=== PATIENT | male | born 1970 | race Caucasian/White ===

== ENCOUNTER → 2017-07-04 | Outpatient (CLI) | payer OTHER ==
[~2017-07-04] MED LIST: DIATRIZOATE MEGL/DIATRIZOA SOD 30 ML BTL PO ONE
--- NOTE | 2017-07-04 12:58 | Diagnostic Imaging Report ---
CT scan pelvis. 07/04/2017 Clinical history: Left-sided groin pain Technique: Routine volumetric CT pelvis. No intravenous contrast was administered. No enteric contrast was administered. Coronal, sagittal and axial images generated from source data. Dose: 390.53 mGy-cm Comparison: None Findings: Imaged portions of the bowel, urinary tract and vasculature are normal. No free fluid. Soft tissues: Large left inguinal hernia containing proximal sigmoid colon. Small fat-containing inguinal hernia. Skeleton: Intact. Impression: 1. Large left inguinal hernia contains normal-appearing sigmoid colon. No CT evidence of strangulation or obstruction. 2. Small fat-containing right inguinal hernia. This report was generated with voice-recognition technology. Errors in mule operator can occur. Please interpret accordingly and contact a radiologist if there are any questions regarding the report. Signed by: Dr. Roldan Lucas M.D. on 07/04/2017 12:54 PM
== END ==
LOC: CT 11:41
PROVIDERS: ATTEND Specialist
DX: R19.09 Other intra-abdominal and pelvic swelling, mass and lump (principal)
CPT/HCPCS: 72192

== ENCOUNTER 2017-07-31 07:33 | Observation (INO) | payer OTHER ==
[~2017-07-31] VITALS: Ht 182.9 cm; Wt 113.9 kg
[~2017-07-31 07:33] MED LIST changes: +ASPIR 8181 MG PO; +B COMPLEX1 EACH PO; -DIATRIZOATE MEGL/DIATRIZOA SOD 30 ML BTL PO ONE; +MULTI-VITAMIN1 EACH PO; +PRAVASTATIN SOD40 MG PO
[2017-07-31 08:55] LABS: BASOPHILS # (AUTO) 0.1 (0.0-0.1); EOSINOPHILS # (AUTO) 0.1 (0.0-0.4); EOSINOPHILS % 1.7 % (0.0-6.0); HEMOGLOBIN 16.2 g/dL (14.0-18.0); LYMPHOCYTES # (AUTO) 2.3 (1.0-3.2); LYMPHOCYTES % 29.1 % (18.0-39.1); MEAN CORPUSCULAR HEMOGLOBIN 30.1 pg (28-32); MEAN CORPUSCULAR VOLUME 83.5 fL (81-99); MONOCYTES # (AUTO) 0.6 (0.2-0.8); MONOCYTES % 7.1 % (4.4-11.3); NEUTROPHILS # (AUTO) 4.9 (2.1-6.9); NEUTROPHILS % 60.7 % (38.7-80.0); PLATELET COUNT 237 x10e3/uL (140-360); RED BLOOD COUNT 5.39 x10e6/uL (4.3-5.7); RED CELL DISTRIBUTION WIDTH 12.4 % (11.7-14.4)
[2017-07-31] MEDS ORDERED: BUPIVACAINE 0.5%/EPI 30 ML SDV INJ ONE (09:02)
[2017-07-31 09:10] LABS: ANION GAP 14.2 mmol/L (8-16); BLOOD UREA NITROGEN 16 mg/dL (7-26); BUN/CREATININE RATIO 16 (6-25); CALCIUM 9.9 mg/dL (8.4-10.2); CARBON DIOXIDE 26 mmol/L (22-29); CHLORIDE 104 mmol/L (98-107); CREATININE, SERUM 1.02 mg/dL (0.72-1.25); EST GLOMERULAR FILTRATION RATE > 60 ML/MIN (60-); GLUCOSE 99 mg/dL (74-118); POTASSIUM 4.2 mmol/L (3.5-5.1); SODIUM 140 mmol/L (136-145)
[2017-07-31] MEDS ORDERED: LIDOCAINE HCL 1% 30ML-PF VIAL ONE (09:28)
[2017-07-31] MEDS ORDERED: FENTANYL CITRATE/PF 100MCG/2 ML INJ ONE ×2 (12:55→17:54)
--- NOTE | 2017-07-31 13:00 | Operative Report ---
DATE OF PROCEDURE: July 31, 2017 PREOPERATIVE DIAGNOSIS: Left inguinal hernia. POSTOPERATIVE DIAGNOSIS: Left inguinal hernia. OPERATION PERFORMED: Repair of left inguinal hernia with extended Prolene hernia system. ANESTHESIA: General. COMPLICATIONS: None. ESTIMATED BLOOD LOSS: Minimal. DESCRIPTION OF PROCEDURE: With the patient lying in bed in supine position under good general endotracheal anesthesia, the abdomen was prepped with Betadine solution and draped in the usual manner. A left inguinal incision was made and was carried down through the subcutaneous tissue down to the external oblique aponeurosis. The external oblique was opened along the length of its fibers, and the external inguinal ring was opened. The cord was then mobilized and retracted. The cord was rather enlarged, and there was a large hernia sac that extended all the way up to the scrotum. The cord was then explored, and a lipoma of the cord was identified, which was from the cord structures, ligated with 2-0 Vicryl and divided. The large hernia sac was then from the cord structures and reduced all the way back to the intra-abdominal cavity. The preperitoneal space was then entered right through the internal ring, and a pocket was created without any difficulty. An extended Prolene hernia system was then placed in the preperitoneal space, and the underlay patch was deployed without any problems. The overlay patch was then placed over the floor and split inferolaterally to allow for passage of the cord. The mesh was then sutured to the conjoined tendon and the inguinal ligament using interrupted sutures of 2-0 Vicryl. The whole area was thoroughly irrigated. Perfect hemostasis was ascertained. All layers were infiltrated on the way out with solution of 1/4 percent Marcaine and 1% lidocaine mixed in equal parts. The external oblique aponeurosis was then closed with a running suture of 2-0 Vicryl. The subcutaneous tissue was approximated with 3-0 plain, and the skin was closed with clips. A dressing was applied. The sponge, lap and needle count was correct. The patient tolerated the procedure well and returned to the recovery room in stable condition. Job#: [id number] OPAL
[2017-07-31] MEDS ORDERED: HYDROCODONE/APAP 7.5MG-325MG 1 EA TAB ONE (15:53)
[2017-07-31] MEDS ORDERED: LIDOCAINE HCL 2% LOCAL INJ 5 ML SDV VIAL INJ ONE (16:15)
[2017-07-31] MEDS ORDERED: ONDANSETRON HCL INJ 2 MG/ML VIAL ONE (16:15)
[2017-07-31] MEDS ORDERED: GLYCOPYRROLATE INJ 1MG/ 5 ML SYR ONE (16:15)
[2017-07-31] MEDS ORDERED: KETOROLAC TROMETHAMINE 30 MG/ML VIAL ONE (16:15)
[2017-07-31] MEDS ORDERED: SEVOFLURANE INHAL SOLN 250 ML PEN BTL ONE (16:15)
[2017-07-31] MEDS ORDERED: PROPOFOL IV EMULSION 10 MG/ML 20 ML VIAL ONE (16:15)
[2017-07-31] MEDS ORDERED: DEXAMETHASONE SOD PHOS INJ 4 MG/ML VIAL ONE (16:15)
[2017-07-31] MEDS ORDERED: MIDAZOLAM HCL 2 MG/2 ML VIAL ONE (17:54)
[2017-07-31] MEDS ORDERED: HYDROCODONE/APAP 7.5MG-325MG 1 EA TAB PO PRN (18:00)
[2017-07-31] MEDS ORDERED: PROMETHAZINE 12.5MG/ NACL 0.9% 12.5 MG/50 ML BAG IV PRN (18:45)
[2017-07-31 20:00] VITALS: BP 140/89
[2017-07-31] MEDS: DEXTROSE 5%/LACTATED RINGERS 1,000 ML IV SCH (20:33)
[2017-07-31] MEDS: HYDROMORPHONE 1MG/1ML INJ IV PRN (20:33)
[2017-08-01] VITALS: BP 108/59
[2017-08-01] MEDS: HYDROMORPHONE 1MG/1ML INJ IV PRN ×2 (00:52→05:01)
[2017-08-01 04:00] VITALS: BP_SYST 108; BP_SYST 132; BP_DIAS 59; BP_DIAS 68
[2017-08-01] MEDS: DEXTROSE 5%/LACTATED RINGERS 1,000 ML IV SCH (05:01)
[2017-08-01 08:04] VITALS: BP 129/72
[2017-08-01 09:59] VITALS: BP 129/72
== END 2017-08-01 10:11 | disposition home or self-care (01) ==
LOC: OR 07:33 → PACU V 17:55 → IMCU 18:21
PROVIDERS: ADMIT Surgery; ATTEND Surgery
DX: K40.90 Unilateral inguinal hernia, without obstruction or gangrene, not specified as recurrent (principal); D17.6 Benign lipomatous neoplasm of spermatic cord; Z01.810 Encounter for preprocedural cardiovascular examination; Z01.812 Encounter for preprocedural laboratory examination; Z87.891 Personal history of nicotine dependence; Z79.82 Long term (current) use of aspirin
CPT/HCPCS: 36415; 49505; 80048; 85025; 93005; C1781; G0378 ×2; J1100; J1170 ×2; J1885; J2001 ×2; J2250; J2405; J2550; J3490; J7120